=== PATIENT | female | born 1945 | race Caucasian/White ===

== ENCOUNTER 2017-10-27 10:54 | Outpatient (CLI) | payer MEDICARE ==
[2017-10-27] MEDS ORDERED: ISOVUE-370 76%-LOCM 1 ML ONE (12:04)
--- NOTE | 2017-10-27 12:55 | CT ---
CT ABDOMEN AND PELVIS WITH IV CONTRAST: Multiple axial tomograms were obtained through the abdomen and pelvis with IV enhancement. INDICATION: Right lower quadrant pain. COMPARISON: Comparison is made to CT abdomen and pelvis of 02/10/17. FINDINGS: The lung bases are clear. The liver, spleen, and pancreas are unremarkable. Adrenal glands and kidneys appear unremarkable and unchanged. There continues to be a small nonobstr ucting calculi in the upper collecting structures of both kidneys, unchanged from prior exam. Small cyst posterior right renal cortex is stable. No hydronephrosis. No evidence of ureteral calculus or obstruction. The urinary bladder is mildly distended and appears unremarkable. Small bowel loops appear normal. Appendix is normal. Diverticulosis of the left colon and sigmoid. No definite CT evidence of diverticulitis. Aorta shows atherosclerotic calcification but remains normal caliber. No adenopathy apparent. Images through the pelvis show evidence of hysterectomy. There continues to be a cystic mass in the left pelvis measuring 2.4 cm. Evidence of internal septations. This mass density is unchanged from the prior study. IMPRESSION: 1. Nonobstructing calculi in the upper collecting structures of both kidneys appears stable. 2. Bilateral renal cystic lesions are stable. 3. Septated cystic mass in the left pelvis unchanged. 4. Diverticulosis without CT evidence of diverticulitis. 5. No acute process or significant interval change. POS: [facility]
== END 2017-10-27 10:55 | disposition home or self-care (01) ==
LOC: BICCT 10:54
PROVIDERS: ATTEND Internal Medicine Gastroenterology
DX: R10.30 Lower abdominal pain, unspecified (principal); N20.0 Calculus of kidney; N28.1 Cyst of kidney, acquired; K57.90 Diverticulosis of intestine, part unspecified, without perforation or abscess without bleeding; Z87.42 Personal history of other diseases of the female genital tract
CPT/HCPCS: 74177; 82565

== ENCOUNTER 2018-04-10 12:24 | Outpatient (CLI) | payer MEDICARE ==
--- NOTE | 2018-04-10 14:49 | PET ---
NUCLEAR MEDICINE PET CT BRAIN: DATE: 04-10-18 HISTORY: 73-year-old female with R41.3 memory difficulty. TECHNIQUE: IV injection of 8.2 mCi [id number]. PET scan and noncontrast brain CT performed. PET-CT fusion images reviewed. FINDINGS: Ventricles are normal in size and configuration. No mass effect, midline shift, or extraaxial fluid c ollection on the noncontrast brain CT. 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 Paranasal sinuses are clear. There is no evidence of hypometabolism of the parietal lobes, posterior cingulate gyrus, or precuneus to indicate Alzheimer's disease. There is decreased uptake in the anterior portions of the temporal lobes and the anterior cingulate g yrus, but not necessarily in the frontal lobes. IMPRESSION: 1. No evidence of Alzheimer's disease 2. 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 Recommend clinical corre lation. POS: [email or web address]
== END 2018-04-10 12:25 | disposition home or self-care (01) ==
LOC: PET 12:24
PROVIDERS: ATTEND Psychiatry & Neurology Neurology
DX: R41.3 Other amnesia (principal)
CPT/HCPCS: 78608; A9552

== ENCOUNTER 2018-05-18 15:34 | Outpatient (CLI) | payer MEDICARE ==
--- NOTE | 2018-05-18 16:21 | CT ---
EXAM: CT Stone Protocol PROVIDED CLINICAL HISTORY: Renal calculi. COMPARISON: Studies on 10/27/2017 and 06/14/2016 FINDINGS: Again noted is a nonobstructing inferior pole left renal calculus measuring 6 mm. Previously seen danii culi in the right renal collecting system are now seen within the right renal pelvis largest measuring 7 mm. There is mild prominence of the right renal pelvis with mild inferior pole calyceal d ilatation of uncertain etiology. The calculi are not seen in the region of the right UPJ. A hypodense lesion is seen at the posterior aspect midportion right kidney also seen on the prior con trasted study and demonstrating characteristics compatible with a cyst on prior exam. Minimal dependent bibasilar atelectasis is present. Vascular calcifications are again seen in the abdominal aorta and involving the iliac arteries. The liver demonstrates diminished attenuation relative to the spleen suggesting fatty infiltration. Spleen, pancreas, bilateral adrenal glands, and urinary bladder demonstrate a normal CT appearance. There is evidence of prior hysterectomy. A 2.6 cm hypodense cystic lesion is seen in the left lower hemipelvis which was also seen on prior ex ams; this cystic adnexal lesion is larger than expected for a patient of this age. Pelvic ultrasound is suggested for further evaluation if this has not been performed. Colonic diverticulosis is again present. The appendix is visualized and normal in caliber. Left convex scoliosis thoracolumbar spine is present. IMPRESSION: 1. Nonobstructing bilateral renal calculi. However, the previously seen calculi in the right renal co llecting system have now migrated into the right renal pelvis which is mildly dilated likely due to a dilated extrarenal pelvis. However, these calculi do not appear to result in obstruction, but there is mild dilatation of the inferior pole right renal calyces of uncertain etiology. 2. Fatty infiltration liver. 3. Colonic diverticulosis. 4. Stable left pelvic cystic lesion. This could be ovarian in origin, but this would be larger than e xpected for a patient of this age. Pelvic ultrasound is suggested for further evaluation.
== END 2018-05-18 15:35 | disposition home or self-care (01) ==
LOC: BICCT 15:34
PROVIDERS: ATTEND Obstetrics & Gynecology
DX: N20.0 Calculus of kidney (principal); K76.0 Fatty (change of) liver, not elsewhere classified; K57.30 Diverticulosis of large intestine without perforation or abscess without bleeding; N83.8 Other noninflammatory disorders of ovary, fallopian tube and broad ligament
CPT/HCPCS: 74176

== ENCOUNTER 2018-06-28 16:37 | Outpatient (CLI) | payer MEDICARE ==
--- NOTE | 2018-06-28 16:54 | RAD ---
KUB: HISTORY: Renal calculi. COMPARISON: 02/16/2018 FINDINGS: There are calculi in the projection of the kidneys bilaterally. The 7 mm calculus in the right kidney and a tiny calculi in the left kidney are stable. The other calculi in the right kidney measuring up to 5 mm are not definitely seen on the previous exam and could've been obscured by overlying bowel contents. IMPRESSION: Bilateral renal calculi.
== END 2018-06-28 16:38 | disposition home or self-care (01) ==
LOC: RAD 16:37
PROVIDERS: ATTEND Urology
DX: N20.0 Calculus of kidney (principal)
CPT/HCPCS: 74018

== ENCOUNTER 2018-07-04 08:25 | Day surgery (SDC) | payer MEDICARE ==
[2018-07-03 15:22] VITALS: BMI 26.5
[2018-07-04 10:13] LABS: #Eosinphils 0.2 thou/uL (0.0-0.7); #Lymphocytes 1.6 thou/uL (1.20-3.40); #Monocytes 0.5 thou/uL (0.11-0.59); #Neutrophils 5.2 thou/uL (1.40-6.50); %Basophils 0.5 % (0.0-1.0); %Eosinophils 2.9 % (0.0-10.0); %Lymphocytes 20.9 % (21.0-51.0); %Neutrophils 68.7 % (42.0-75.0); Hemoglobin 12.7 g/dL (12.0-16.0); Mean Corpuscular HGB CONC 32.6 g/dL (32.0-36.0); Mean Corpuscular Hemoglobin 29.3 pg (27.0-31.0); Mean Corpuscular Volume 89.9 fL (78.0-98.0); Mean Platelet Volume 6.6 fL (7.4-10.4); Platelet Count 271 thou/uL (130-400); Red Blood Cell (RBC) Count 4.33 mill/uL (4.20-5.40); White Blood Cell (WBC) Count 7.6 thou/uL (4.8-10.8)
[2018-07-04 10:18] LABS: Platelet Count 271 thou/uL (130-400)
[2018-07-04 10:20] LABS: PTT 32.1 SEC (22.9-36.1); Prothrombin Time 13.7 SEC (12.0-14.7)
[2018-07-04 10:28] LABS: EPI 146 SEC (67-199)
[2018-07-04] MEDS ORDERED: Fentanyl 100 MCG/2 ML VIAL ONE (10:49)
--- NOTE | 2018-07-04 12:59 | OP ---
DATE OF PROCEDURE: 07/04/2018 PREOPERATIVE DIAGNOSIS: Right renal stone. POSTOPERATIVE DIAGNOSIS: Right renal stone. PROCEDURE PERFORMED: Right extracorporeal shock wave lithotripsy. ANESTHETIC: General. ESTIMATED BLOOD LOSS: Not recorded. FINDINGS: There was a 7 mm stone in the right renal pelvis. She probably has a couple stones there based on her CAT scan. This area was treated with 2500 shocks at maximum level kV 4 with the last 500 shocks at level 5. There were no stent was placed. There was good fragmentation. DESCRIPTION OF PROCEDURE: Obtained written and verbal consent from the patient and after documenting normal preoperative blood work, being sure we could see her stone in preoperative x-ray, she was taken to the operating suite. She was placed in a supine position on the treatment table. PlexiPulses were placed on her lower extremities and turned on. She was given a general anesthetic and oral obturator intubation. She was coupled to the lithotripsy unit. The stone was placed in treatment focal point. Shockwave therapy was commenced starting at a low kV and a slow rate. After couple 100 shocks, a 5 minute pause was given. We restarted the ESWL and kept at a rate of 60. We increased slowly the kV up to 4 and then a 2000 shocks increased up to 5. Actually for the last 100 shocks decreased back to 4. It appeared to fragment the stone into pieces very nicely. The stent was not felt to be necessary. At the end of procedure, she was awakened and extubated and taken by stretcher to the recovery room. Job ID: [id number]
[2018-07-04] MEDS ORDERED: Glycopyrrolate 0.2 MG/ML 5 ML SYRINGE ONE (13:05)
[2018-07-04] MEDS ORDERED: Hydrocortisone Sod Succ/PF 100 mg/2 ml Vial ONE (13:05)
[2018-07-04] MEDS ORDERED: PROPOFOL 200 MG/20 ML VIAL ONE (13:05)
[2018-07-04] MEDS ORDERED: Lidocaine 1% PF 5 ML VIAL ONE (13:05)
[2018-07-04] MEDS ORDERED: Ondansetron PF 4 MG/2 ML Vial ONE (13:05)
== END 2018-07-04 13:55 | disposition home or self-care (01) ==
LOC: SDC 08:25
PROVIDERS: ATTEND Urology
PROC: 0TF3XZZ Fragmentation in Right Kidney Pelvis, External Approach (ICD-10-PCS; principal; 2018-07-04)
DX: N20.0 Calculus of kidney (principal); I10 Essential (primary) hypertension; E11.9 Type 2 diabetes mellitus without complications; K21.9 Gastro-esophageal reflux disease without esophagitis; Z79.52 Long term (current) use of systemic steroids; Z79.84 Long term (current) use of oral hypoglycemic drugs; Z79.899 Other long term (current) drug therapy; Z88.0 Allergy status to penicillin; Z88.8 Allergy status to other drugs, medicaments and biological substances
CPT/HCPCS: 36415; 85025; 85576; 85610; 85730; J1720; J2001; J2405; J2704; J3010

== ENCOUNTER 2018-07-15 22:46 | Emergency (ER) | payer MEDICARE ==
[2018-07-15] MEDS ORDERED: Ondansetron PF 4 MG/2 ML Vial ONE (23:06)
[2018-07-15] MEDS ORDERED: Morphine 4 MG/ML VIAL ONE (23:06)
[2018-07-15 23:40] LABS: #Basophils 0.1 thou/uL (0.0-0.2); #Eosinphils 0.2 thou/uL (0.0-0.7); #Lymphocytes 2.4 thou/uL (1.20-3.40); #Monocytes 0.8 thou/uL (0.11-0.59); #Neutrophils 6.4 thou/uL (1.40-6.50); %Basophils 0.9 % (0.0-1.0); %Eosinophils 2.5 % (0.0-10.0); %Monocytes 8.1 % (0.0-10.0); %Neutrophils 64.6 % (42.0-75.0); Hemoglobin 11.7 g/dL (12.0-16.0); Mean Corpuscular HGB CONC 33.2 g/dL (32.0-36.0); Mean Corpuscular Hemoglobin 29.7 pg (27.0-31.0); Mean Corpuscular Volume 89.5 fL (78.0-98.0); Mean Platelet Volume 6.8 fL (7.4-10.4); Platelet Count 283 thou/uL (130-400); RBC Distribution Width 12.6 % (11.5-14.5); Red Blood Cell (RBC) Count 3.94 mill/uL (4.20-5.40); White Blood Cell (WBC) Count 9.9 thou/uL (4.8-10.8)
[2018-07-16] MEDS ORDERED: Morphine 4 MG/ML VIAL ONE (00:03)
[2018-07-16 00:09] LABS: Albumin 4.1 g/dL (3.4-4.8)
[2018-07-16 00:10] LABS: Chloride 110 mmol/L (98-107); Potassium 3.4 mmol/L (3.5-5.1); Sodium 142 mmol/L (136-145)
[2018-07-16 00:11] LABS: Glucose 139 mg/dL (83-110)
[2018-07-16 00:12] LABS: Globulin 2.2 g/dL (2.4-3.5); Protein, Total 6.3 g/dL (6.0-8.3)
[2018-07-16 00:13] LABS: Bilirubin, Total 0.2 mg/dL (0.2-1.2); Carbon Dioxide 18 mmol/L (23-31)
[2018-07-16 00:14] LABS: Alkaline Phosphatase 65 U/L (40-150)
[2018-07-16 00:15] LABS: BUN (Urea Nitrogen) 16 mg/dL (9.8-20.1); Calc. Creatinine Clearance 0 mL/min (70-130); Estimated GFR-MDRD 64
[2018-07-16 00:16] LABS: AST (SGOT) 16 U/L (5-34)
[2018-07-16 00:17] LABS: ALT (SGPT) 17 U/L (8-55); Lipase 147 U/L (8-78)
--- NOTE | 2018-07-16 00:20 | RAD ---
RADIOGRAPH CHEST 1 VIEW: DATE: 07/16/2018 HISTORY: Chest pain FINDINGS: There are no airspace densities, pulmonary edema, pneumothorax, or cardiomegaly. The lateral costophr enic angles are sharp. IMPRESSION: No acute cardiopulmonary findings.
--- NOTE | 2018-07-16 00:29 | ULT ---
ULTRASOUND ABDOMEN LIMITED: (RIGHT UPPER QUADRANT) DATE: 07/15/2018 Time: 11:58 PM HISTORY: Epigastric pain FINDINGS: Gallbladder: Normal wall thickness. No evidence of pericholecystic fluid, gallstones, or sludge. Liver: Diffusely increased echogenicity, consistent with fatty liver. Common duct caliber:4 mm. Right kidney: No hydronephrosis. 2 x 1.5 cm upper pole parapelvic cyst. Pancreas: Nonspecific sonographic appearance. IMPRESSION: 1) Hepatic steatosis. 2.) Right renal cyst 3) otherwise negative.
[2018-07-16 00:42] LABS: Anion Gap 17 mmol/L (10-20)
[2018-07-16 00:45] LABS: Bilirubin Small (Negative); Blood, Urine Large (Negative); Clarity TURBID (Clear); Glucose, Urine (Dipstick) Negative (Negative); Leukocyte Moderate (Negative); Nitrite Negative (Negative); Protein, Urine (Dipstick) 100 mg/dL (Neg-Trace); Specific Gravity, Urine 1.018 (1.002-1.036)
[2018-07-16 00:47] LABS: WBC/HPF 21-50 HPF (0-3)
[2018-07-16 00:49] LABS: Pathc Cast-AUWi Flag 2.58 (0-2.49); Yeast-AUWi Flag 93.9 (0-25.0)
[2018-07-16] MEDS ORDERED: Fentanyl 100 MCG/2 ML VIAL ONE (00:49)
[2018-07-16 00:57] LABS: RBC/HPF GREATER THAN 50-TNTC HPF (0-3)
[2018-07-16 00:58] LABS: Bacteria/HPF Rare-Few HPF (None Seen); Yeast-All Forms None Seen HPF (None Seen)
[2018-07-16] MEDS ORDERED: niCARdipine 20MG In NaCl 20 MG/200 ML BAG ONE (01:04)
[2018-07-16] MEDS ORDERED: Labetalol HCl 100 MG/20 ML VIAL ONE (01:04)
--- NOTE | 2018-07-16 07:41 | CT ---
PRELIMINARY REPORT/[facility]/EMERGENCY AFTER HOURS PROCEDURE: EXAM: CT Angiography Chest With Contrast EXAM DATE/TIME: 07/16/2018 12:33 AM CLINICAL HISTORY: 73 years old, female; Chest pain; Abdominal pain; Acute; Patient HX: 73 y/o F presents to ED via EMS transport for sudden onset of abd pain at approx 2200 tonight. PT states pain began as she was getting out of the bathtub, initially localized to epigastrium then migrated to her chest. PT also no sophy radiation of pain to upper back. Associated with diaphoresis. Denies nausea, dyspnea, dizziness. Per EMS, vss en route. Pain somewhat improved following sl ng. TECHNIQUE: Imaging protocol: Axial computed tomographic angiography images of the chest with intravenous contrast using CT angiography protocol. 3D rendering: MIP reconstructed images were created and reviewed. COMPARISON: No relevant prior studies available. FINDINGS: Pulmonary arteries: Normal. No pulmonary emboli. Aorta: Unremarkable. No aortic aneurysm. No aortic dissection. Other arteries: There is periaortic density measuring about 80 Hounsfield units just distal to the le ft subclavian artery and extends inferiorly and terminates about the level of the celiac artery. No inti mal flap visualized. Lungs: Bibasal atelectasis. Pleural space: Unremarkable. No pneumothorax. No pleural effusion. Heart: Unremarkable. No cardiomegaly. No pericardial effusion. Mediastinum: Mild to moderate hiatal hernia. Lymph nodes: Unremarkable. No enlarged lymph nodes. Bones/joints: Unremarkable. No acute fracture. Soft tissues: Unremarkable. IMPRESSION: 1. 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 2. No pulmonary embolism. 3. Mild to moderate hiatal hernia. EXAM: CT Angiography Abdomen With Contrast EXAM DATE/TIME: 07/16/2018 12:33 AM CLINICAL HISTORY: 73 years old, female; Chest pain; Abdominal pain; Acute; Patient HX: 73 y/o F presents to ED via EMS transport for sudden onset of abd pain at approx 2200 tonight. PT states pain began as she was getting out of the bathtub, initially localized to epigastrium then migrated to her chest. PT also no sophy radiation of pain to upper back. Associated with diaphoresis. Denies nausea, dyspnea, dizziness. Per EMS, vss en route. Pain somewhat improved following sl ng. TECHNIQUE: Imaging protocol: Axial computed tomographic angiography images of the abdomen with intravenous contrast material. 3D rendering: MIP reconstructed images were created and reviewed. COMPARISON: No relevant prior studies available. FINDINGS: Lungs: Unremarkable. No consolidation. VASCULATURE: Aorta: There is ectasia of the infrarenal aorta measuring 2.7 cm. Moderate atheromatous calcifications of the abdominal aorta and its celiac ostium. There is short segment of narrowing of t he celiac ostium. Celiac trunk and mesenteric arteries: See Aorta Finding. Renal arteries: No occlusion or significant stenosis. ABDOMEN: Liver: Normal. No mass. Gallbladder and bile ducts: Normal. No calcified stones. No ductal dilation. Pancreas: Normal. No ductal dilation. Spleen: Normal. No splenomegaly. Adrenals: Normal. No mass. Kidneys and ureters: 2.4 cm right renal cyst. There is a 0.5 cm nonobstructing right renal stone. There is a 0.4 cm stone within the left renal pelvis with focal dilatation. No hydronephrosis. Stomach and bowel: Unremarkable. No obstruction. No mucosal thickening. Intraperitoneal space: Unremarkable. No free air. No significant fluid collection. Bones/joints: Scoliosis of the thoracolumbar spine. No acute fracture. No dislocation. Soft tissues: Unremarkable. Lymph nodes: Unremarkable. No enlarged lymph nodes. IMPRESSION: 1. 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 No intimal flap. Please see liquid fertilizer servicer CTA chest. 2. 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 3. 0.5 cm Nonobstructing right renal stone. 4. 0.4 cm stone within the left renal pelvis without definite hydronephrosis. THIS REPORT CONTAINS FINDINGS THAT MAY BE CRITICAL TO PATIENT CARE. The findings were verbally communicated via telephone conference with KENZIE Frost at 12:58 AM CDT on 07/16/2018. The findings were acknowledged and understood. Thank you for allowing us to participate in the care of your patient. Dictated and Authenticated by: Rula Kwan DO 07/16/2018 1:16 AM Central Time ([place] & [place]) FINAL REPORT CT Aortic Dissection Protocol History: Chest pain. Back pain. Comparison: Chest radiograph prior day Findings/Impression: CT angiogram of the chest and abdomen performed after the intravenous administr ation of contrast. 3-D rendering provided. The findings and impression are concordant with the preliminary report. Aortic intramural hematoma of the distal transverse aorta extending throughout th e ascending aorta to the level of celiac trunk which does extend to the base of the left subclavian artery. Cardiovascular surgical consultation advised. Transcribed Date/Time: 07/16/2018 7:53 AM
[2018-07-16] MEDS ORDERED: ISOVUE-370 76%-LOCM 1 ML ONE (09:50)
== END 2018-07-16 02:15 | disposition short-term general hospital (02) ==
LOC: ERS 22:46
DX: M79.81 Nontraumatic hematoma of soft tissue (principal); I10 Essential (primary) hypertension; K21.9 Gastro-esophageal reflux disease without esophagitis; F32.9 Major depressive disorder, single episode, unspecified; Z79.84 Long term (current) use of oral hypoglycemic drugs; Z79.899 Other long term (current) drug therapy
CPT/HCPCS: 36415; 71045; 71275; 76705; 80053; 81003; 81015; 83690; 84484; 85025; 86850; 86900; 86901; 93005; 96361; 96365; 96375; 96376; J2270; J2405; J3010; Q9966

== ENCOUNTER 2018-10-05 11:40 | Emergency (ER) | payer MEDICARE ==
[2018-10-05 12:16] LABS: #Eosinphils 0.3 thou/uL (0.0-0.7); #Lymphocytes 1.3 thou/uL (1.20-3.40); #Monocytes 0.7 thou/uL (0.11-0.59); #Neutrophils 3.7 thou/uL (1.40-6.50); %Basophils 0.3 % (0.0-1.0); %Eosinophils 5.4 % (0.0-10.0); %Lymphocytes 21.4 % (21.0-51.0); %Monocytes 11.6 % (0.0-10.0); %Neutrophils 61.3 % (42.0-75.0); Hemoglobin 11.7 g/dL (12.0-16.0); Mean Corpuscular HGB CONC 32.7 g/dL (32.0-36.0); Mean Corpuscular Hemoglobin 29.3 pg (27.0-31.0); Mean Corpuscular Volume 89.6 fL (78.0-98.0); Mean Platelet Volume 6.6 fL (7.4-10.4); Platelet Count 332 thou/uL (130-400); RBC Distribution Width 14.9 % (11.5-14.5); Red Blood Cell (RBC) Count 4.01 mill/uL (4.20-5.40)
[2018-10-05 12:20] LABS: INR-International Normal Ratio 1.1; PTT 30.4 SEC (22.9-36.1)
[2018-10-05 12:37] LABS: ALT (SGPT) 12 U/L (8-55); AST (SGOT) 13 U/L (5-34); Albumin 4.5 g/dL (3.4-4.8); Alkaline Phosphatase 65 U/L (40-150); Anion Gap 16 mmol/L (10-20); BUN (Urea Nitrogen) 14 mg/dL (9.8-20.1); Bilirubin, Total 0.3 mg/dL (0.2-1.2); Calc. Creatinine Clearance 0 mL/min (70-130); Calcium 9.7 mg/dL (7.8-10.44); Carbon Dioxide 20 mmol/L (23-31); Chloride 111 mmol/L (98-107); Estimated GFR-MDRD 52; Globulin 2.8 g/dL (2.4-3.5); Glucose 131 mg/dL (83-110); Potassium 4.2 mmol/L (3.5-5.1); Protein, Total 7.3 g/dL (6.0-8.3); Sodium 143 mmol/L (136-145)
[2018-10-05] MEDS ORDERED: ISOVUE-370 76%-LOCM 1 ML ONE (12:47)
--- NOTE | 2018-10-05 13:21 | CT ---
Exam: CT angiogram of the abdomen and pelvis with IV contrast: COMPARISON: 2018 HISTORY: Left lower quadrant pain, history of aortic repair, dark diarrhea The lung bases are clear. Aortic endo stent noted in the distal thoracic aorta. Prominent atheroscler otic calcification changes of the aorta and great vessels within the abdomen. Small focal aneurysmal dilatation of the infrarenal abdominal aorta up to 2.4 cm. Nonobstructing bilateral renal calculi. 2.2 cm posterior right renal cyst. Using Nascet Criteria, mild stenotic changes of the origins of the right and left renal arteries. There is also mild to moderate stenosis of the origin o f the celiac artery. No CT evidence for acute appendicitis. Colonic diverticulosis particularly in the sigmoid colon without CT evidence for acute diverticulitis . 2.5 cm left adnexal cyst status post hysterectomy. No abdominal or pelvic abscess, adenopathy, or abnormal fluid collection. IMPRESSION: Atherosclerotic calcification changes of the aorta and great vessels within the abdomen and pelvis. 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 Nonobstructing bilateral renal calculi. Colonic diverticulosis without acute diverticulitis. Focal atherosclerotic ectatic changes of the infrarenal abdominal aorta up to 2.4 cm.
== END 2018-10-05 15:00 | disposition home or self-care (01) ==
LOC: ERS 11:40
DX: K52.9 Noninfective gastroenteritis and colitis, unspecified (principal); I71.4 Abdominal aortic aneurysm, without rupture; F32.9 Major depressive disorder, single episode, unspecified; Z79.899 Other long term (current) drug therapy
CPT/HCPCS: 36415; 74174; 80053; 85025; 85610; 85730; 86850; 86900; 86901; Q9966

== ENCOUNTER 2018-11-02 09:48 | Outpatient (CLI) | payer MEDICARE ==
--- NOTE | 2018-11-02 10:41 | MRI ---
MRI Lumbar Spine Noncontrast: HISTORY: Lumbago with sciatica, right side. COMPARISON: None FINDINGS: There is an increased T2-weighted signal intensity lesion seen in the midportion right kidney which d emonstrates characteristics most compatible with a cyst. This is also seen on prior CT abdomen on 10/05/2018 and 10/27/2017. There are additional tiny subcentimeter increased T2-weighted signal intensi ty foci in each kidney also statistically likely representing cysts, a few of which were also seen on prior study in 2018. Conus medullaris is normal in morphology and terminates at the L2 level. There is mild left convex cu rvature of the thoracolumbar spine. L1-2: There is no significant narrowing of the central spinal canal or neural foramina. L2-3: There is a mild disc osteophyte complex present. Central spinal canal and neural foramina are p atent. L3-4: There is a mild broad-based disc osteophyte complex and facet hypertrophic changes. There is mi nimal narrowing of the central spinal canal. Neural foramina are patent. L4-5: A mild broad-based disc osteophyte complex is present with moderate facet hypertrophic changes present. There is minimal narrowing of the central spinal canal. The right neural foramen is patent, but there is mild left-sided neural foraminal narrowing. Mild endplate degenerative changes a re seen. L5-S1: A minimal disc bulge is present. Facet hypertrophic changes are identified at this level. The central spinal canal and neural foramina are patent. IMPRESSION: Minimal scattered degenerative changes of the lumbar spine. There is no significant central canal or neural foraminal narrowing at any level.
== END 2018-11-02 09:49 | disposition home or self-care (01) ==
LOC: TBSIIMAG 09:48
PROVIDERS: ATTEND Nurse Practitioner Acute Care
DX: M54.41 Lumbago with sciatica, right side (principal); M47.816 Spondylosis without myelopathy or radiculopathy, lumbar region
CPT/HCPCS: 72148

== ENCOUNTER 2019-02-28 09:42 | Observation (INO) | payer MEDICARE ==
[2019-02-28 10:25] LABS: #Basophils 0.1 thou/uL (0.0-0.2); #Eosinphils 0.9 thou/uL (0.0-0.7); #Lymphocytes 1.2 thou/uL (1.20-3.40); #Monocytes 1.3 thou/uL (0.11-0.59); %Basophils 0.5 % (0.0-1.0); %Eosinophils 8.4 % (0.0-10.0); %Lymphocytes 11.4 % (21.0-51.0); %Monocytes 12.2 % (0.0-10.0); %Neutrophils 67.5 % (42.0-75.0); Hemoglobin 10.9 g/dL (12.0-16.0); Mean Corpuscular HGB CONC 31.5 g/dL (32.0-36.0); Mean Corpuscular Hemoglobin 28.3 pg (27.0-31.0); Mean Corpuscular Volume 89.9 fL (78.0-98.0); Mean Platelet Volume 6.7 fL (7.4-10.4); Platelet Count 284 thou/uL (130-400); RBC Distribution Width 15.2 % (11.5-14.5); Red Blood Cell (RBC) Count 3.85 mill/uL (4.20-5.40); White Blood Cell (WBC) Count 10.3 thou/uL (4.8-10.8)
[2019-02-28 10:46] LABS: ALT (SGPT) Less than 7 U/L (8-55); AST (SGOT) 13 U/L (5-34); Albumin 3.6 g/dL (3.4-4.8); Alkaline Phosphatase 60 U/L (40-110); Anion Gap 12 mmol/L (10-20); BUN (Urea Nitrogen) 19 mg/dL (9.8-20.1); Bilirubin, Total 0.4 mg/dL (0.2-1.2); Calc. Creatinine Clearance 0 mL/min (70-130); Calcium 8.1 mg/dL (7.8-10.44); Carbon Dioxide 21 mmol/L (23-31); Chloride 108 mmol/L (98-107); Estimated GFR-MDRD 41; Globulin 2.3 g/dL (2.4-3.5); Glucose 99 mg/dL (83-110); Protein, Total 5.9 g/dL (6.0-8.3); Sodium 137 mmol/L (136-145)
--- NOTE | 2019-02-28 11:37 | CT ---
CTA OF THE CHEST AND ABDOMEN UTILIZING AN AORTIC DISSECTION PROTOCOL AND 3-D REFORMATTED IMAGING INDICATION: Fall with back pain COMPARISON: Prior CTA aortic dissection protocol dated July 16, 2018 FINDINGS: Aorta: Since the prior examination there is been interval placement of a long endograft stent extendi ng from the thoracic aortic arch to the level of the suprarenal abdominal aorta, ending just proximal to the celiac artery origin. The ascending aorta and proximal aortic arch appear within norm al limits. There is stable moderate narrowing involving the origin and proximal aspect of the celiac artery. The SMA is patent. There is mild atherosclerotic calcification involving the proximal renal arteries bilaterally without hemodynamically significant stenosis. There is mild ectasia of the infrarenal abdominal aorta measuring 2.5 cm. The ALISON is patent. Both common iliac arteries are pa tent. Central pulmonary artery: No central pulmonary embolus demonstrated. Additional thorax findings: There is nonspecific bibasilar subsegmental atelectasis. No pneumothorax or contusion is evident. No enlarged lymph nodes are present. There are coronary artery calcifications. Additional abdominal findings: There is a small hiatal hernia. There is a 1.8 cm arterially enhancing lesion within segment 6 of the right hepatic lobe on image 119 series 2. An additional is seen within segment 7 on image 101 of series 2 measuring 7 mm. 2 additional subcentimeter enhancing lesion s are seen on image 90 of series 2 within segment 5 of the right hepatic lobe. There is a 5 mm enhancing lesion adjacent to the gallbladder fossa on image 108 of series 2. These lesions may have b een present on the prior examination but are less accentuated and left prominent in size and on the current study. Lesions appear slightly more pronounced than on the comparison CT examination dated 2018. There has been interval development of mild bilateral hydronephrosis. There is left-sided hydroureter that is incompletely evaluated. There is a stable 6 mm stone within the right mid kidney. There is stable right renal cyst. Osseous structures: There is a new, likely acute mild superior endplate compression fracture of L1. T his is new from the comparison MR dated November 02, 2018. No additional acute fractures evident. IMPRESSION: 1. New mild superior endplate compression fracture of L1. 2. Interval placement of an endograft stent in the descending thoracic aorta and proximal suprarenal abdominal aorta. 3. New bilateral hydronephrosis of undetermined etiology. Would recommend consideration for a follow- up CT of the pelvis to evaluate for distal obstructing process at the level bladder or distal ureters. There is stable right nephrolithiasis and right renal cysts. 4. 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 5. 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
[2019-02-28] MEDS ORDERED: Morphine 4 MG/ML VIAL ONE (11:59)
[2019-02-28] MEDS ORDERED: Cyclobenzaprine 10 MG TAB ONE (13:42)
[2019-02-28 13:53] LABS: Bacteria/HPF None Seen HPF (None Seen); Bilirubin Negative (Negative); Blood, Urine Trace (Negative); Clarity Clear (Clear); Glucose, Urine (Dipstick) Normal (Negative); Leukocyte Negative Leu/uL (Negative); Nitrite Negative (Negative); Protein, Urine (Dipstick) Negative (Neg-Trace); RBC/HPF 0-3 HPF (0-3); Squamous Epithelial 0-3 HPF (0-3); Urobilinogen Normal mg/dL (Less than 2)
[2019-02-28] MEDS ORDERED: Acetaminophen 500 MG TAB ONE (14:19)
[2019-02-28] MEDS ORDERED: HYDROcodone/Acetaminophen 5/325 mg Tablet ONE (14:19)
[2019-02-28] MEDS ORDERED: Iopamidol-370 76% 500 ML 1 ML ONE (14:29)
[2019-02-28] MEDS ORDERED: Ondansetron ODT 4 MG TAB PO PRN (16:47)
[2019-02-28] MEDS ORDERED: hydrALAZINE 20 MG/ML VIAL SLOW IVP PRN (16:47)
[2019-02-28] MEDS ORDERED: Dextrose 50% Abboject 50 ML SYRINGE SLOW IVP PRN (16:47)
[2019-02-28] MEDS ORDERED: Dextrose 5% in Water 1,000 ML IV PRN (16:47)
[2019-02-28] MEDS ORDERED: Ondansetron PF 4 MG/2 ML Vial IVP PRN (16:47)
[2019-02-28] MEDS ORDERED: traMADol HCl 50 MG TAB PO PRN (16:56)
--- NOTE | 2019-02-28 19:31 | HP ---
CONSULTING PHYSICIANS: 1. Emi Mclaughlin NP. 2. Jaylin Barajas MD. HISTORY OF PRESENT ILLNESS: Ms. Mann is a 74-year-old female, who presents to the ED after the incident of fall at home. This morning, the patient reports she went to the bathroom, felt dizzy and dropped on her back. She did not hit her head or other area. After the fall, the patient reports pain in the lower back with no neurology deficits. The patient is still awake and alert. Upon arrival, the patient was aware and alert. GCS 15. Vitals with bradycardia, heart rate is 50 to 60, blood pressure report per EMS is 84/41, and the patient did receive 1 L of fluid. REVIEW OF SYSTEMS: Noncontributory except per HPI. PAST MEDICAL HISTORY: The patient has a past medical history of hypertension. PAST SURGICAL HISTORY: Include aortic dissection repair last year with 2 stents, hysterectomy, tonsillectomy, ovarian cyst and pituitary tumor. SOCIAL HISTORY: The patient denies alcohol use or drug use. Denies smoking history. The patient lives at home and ambulates well with no assistance with a walker or cane. ALLERGIES: NO KNOWN ALLERGY. CURRENT MEDICATIONS: 1. Nifedipine 60 mg b.i.d. 2. Bisoprolol 5 mg two tablets b.i.d. 3. Sertraline 25 mg daily. 4. Gabapentin 100 one tablet every 8 hours as needed. 5. Tramadol 50 mg every 6 hours as needed. 6. Spironolactone 50 mg one tab daily. 7. Irbesartan 300 one tablet daily. 8. Pantoprazole 40 mg one tablet daily. 9. Tylenol and naproxen as needed. PHYSICAL EXAMINATION: GENERAL: The patient is lying in bed comfortable with no acute respiratory distress. The patient is alert, awake, and answers question intelligently. GCS is 15. HEENT: Atraumatic. No bruising. No tender to palpation. Pupil 3 mm, equal bilaterally. NECK: Trachea is midline. No tender to palpation. CHEST: Atraumatic. No bruising. No crepitus. No tender to palpation. LUNGS: Clear bilaterally. HEART: Regular rhythm. Bradycardia, heart rate is 55 beats per minute. ABDOMEN: Atraumatic. No bruising. No tender to palpation. No deformity. No distention. Bowel sounds active. PELVIS: Stable. EXTREMITIES: Normal range of motion across. NEUROLOGIC: Sensory is intact x4. Pulses 2+ on 4 extremities. BACK: Tender to palpation at the level of L1. ASSESSMENT: 1. Status post ground-level fall. 2. L1 compression fracture. 3. History of aortic dissection surgery was stents, pituitary tumor removed, and hypertension. PLAN: The patient will be admitted to [place] [id number] Barajas was consulted. Dr. Barajas recommended TLSO brace at all time. The patient will have a low-sodium diet. The patient will be working with PT and OT tomorrow. Anticipate placement in rehabilitation facility either tomorrow or the day after. Job ID: [id number]
[2019-02-28] MEDS: Gabapentin 300 MG CAP PO SCH (20:12)
[2019-02-28] MEDS: Senokot S 8.6-50 MG TAB PO SCH (20:12)
[2019-02-28] MEDS: traMADol HCl 50 MG TAB PO PRN (20:13)
[2019-02-28 20:51] VITALS: BMI 24.6
[2019-02-28] MEDS ORDERED: Bisoprolol Fumarate 5 MG TAB PO SCH (21:00)
[2019-02-28] MEDS ORDERED: Sodium Chloride 0.9% 1,000 ML IV SCH (22:15)
[2019-02-28] MEDS ORDERED: HYDROcodone/Acetaminophen 5/325 mg Tablet PO SCH (22:15)
[2019-02-28] MEDS: Acetaminophen 500 MG TAB PO SCH ×2 (22:50→22:52)
[2019-02-28] MEDS: Bisoprolol Fumarate 5 MG TAB PO SCH (23:01)
--- NOTE | 2019-03-01 00:46 | PRG ---
DATE OF SERVICE: 03/01/2019 SUBJECTIVE: The patient is currently on the surgical floor. She has just been brought up from the emergency department. She has been admitted for an L1 compression fracture after a ground level fall. Originally, she was to go to rehab, but unfortunately there was not a bed available, so we admitted her here until bed availability. She is being admitted for pain control and observe for syncope. PHYSICAL EXAMINATION: VITAL SIGNS: Stable. The patient at the time of my visit has heart rate of 59 and blood pressure of 113/68. We are currently holding her home medicines at this time, though we do realize that her blood pressure is to be held on the lower side as is her heart rate, so we will closely monitor this. GENERAL: The patient is resting comfortably in bed. She is awake, alert, conversant. She states that her pain is moderately controlled. We will make adjustments to this. EXTREMITIES: The patient is wearing her TLSO brace at this time and appears to be fitting well. It is not restricting her respirations. NEUROLOGICAL: She is neurologically intact in all 4 extremities. ASSESSMENT: 1. Status post ground level fall. 2. L1 compression fracture, treated with a TLSO brace. 3. History of aortic dissection, repaired with stent. 4. History of pituitary tumor removal. 5. Hypertension. PLAN: Plan will be to continue supportive care, pain control. Begin physical and occupational therapy in the morning. Close monitoring of her vital signs. Job ID: [id number]
[2019-03-01] MEDS: Acetaminophen 500 MG TAB PO SCH ×3 (05:35→17:20)
[2019-03-01 05:41] LABS: Anion Gap 10 mmol/L (10-20); BUN (Urea Nitrogen) 15 mg/dL (9.8-20.1); Calc. Creatinine Clearance 44 mL/min (70-130); Calcium 8.4 mg/dL (7.8-10.44); Carbon Dioxide 23 mmol/L (23-31); Chloride 111 mmol/L (98-107); Estimated GFR-MDRD 45; Glucose 91 mg/dL (83-110); Sodium 140 mmol/L (136-145)
[2019-03-01] MEDS ORDERED: Levothyroxine Sodium 100 MCG TAB PO SCH (06:00)
[2019-03-01] MEDS ORDERED: Bisoprolol Fumarate 5 MG TAB PO SCH (09:00)
[2019-03-01] MEDS ORDERED: NIFEdipine XL 60 MG TAB PO SCH (09:00)
[2019-03-01] MEDS ORDERED: Losartan 25 MG TAB PO SCH (09:00)
[2019-03-01] MEDS ORDERED: Polyethylene Glycol 3350 17 GM Packet PO SCH ×2 (09:00→15:45)
[2019-03-01] MEDS: Gabapentin 300 MG CAP PO SCH (10:22)
[2019-03-01] MEDS: Senokot S 8.6-50 MG TAB PO SCH (10:22)
[2019-03-01] MEDS: Bisoprolol Fumarate 5 MG TAB PO SCH (10:24)
[2019-03-01] MEDS ORDERED: Iopamidol-370 76% 500 ML 1 ML ONE (10:35)
--- NOTE | 2019-03-01 12:36 | CT ---
CT Abdomen Pelvis W Con: 03/01/2019 9:16 AM CLINICAL INFORMATION: Hydronephrosis COMPARISON: None. TECHNIQUE: Multiple contiguous axial images were obtained and a CT of the abdomen and pelvis with IV contrast. Oral contrast was administered. Coronal and sagittal reformats were performed. FINDINGS: Lower Chest: Bilateral dependent atelectasis Abdomen: Liver: within normal limits. Bile Ducts: Normal caliber. Gallbladder: No calcified gallstones. Normal caliber wall. Pancreas: within normal limits. Spleen: within normal limits. Adrenals: within normal limits. Kidneys: 2.5 cm right renal cyst. Minimal right hydronephrosis. Mild to moderate left hydronephrosis. No delay in either nephrogram. Pelvis: Reproductive Organs: Status post hysterectomy. There is a stable 2.4 cm hypodensity in the left pelvi s which may represent either a bladder diverticulum or a follicle/cyst in the left ovary. Ureters: 6 mm right proximal ureteral calcification with mild enlargement of the right renal pelvis. 4 mm left ureterovesical junction calcification with mild left hydroureter Bladder: within normal limits. Peritoneum: No ascites or free air, no fluid collection. Bowel: Normal caliber. Normal appendix. Diverticula in the colon. Mesentery and Retroperitoneum: No enlarged mesenteric or retroperitoneal lymph nodes. Vessels: Atherosclerotic calcifications. There is a stent in the thoracic aorta. Abdominal Wall: within normal limits. Bones: Within normal limits IMPRESSION: 1. Left ureterovesical junction calculus lesion with mild to moderate left hydronephrosis 2. Proximal right ureteral calcification with minimal hydronephrosis. 3. Diverticulosis 4. Right renal cyst
[2019-03-01] MEDS: traMADol HCl 50 MG TAB PO PRN (13:24)
[2019-03-01 15:29] VITALS: BP 146/70; TEMP 98.1
[2019-03-01] MEDS ORDERED: Morphine 2 MG/ML SYRINGE SLOW IVP SCH (16:45)
[2019-03-01] MEDS ORDERED: Bisacodyl 10 MG SUPP PR SCH (16:45)
[2019-03-02] MEDS ORDERED: Polyethylene Glycol 3350 17 GM Packet PO SCH (09:00)
== END 2019-03-01 18:50 ==
LOC: ERS 09:42 → SURG B 19:57
PROVIDERS: ADMIT Surgery; ATTEND Surgery
DX: S32.010A Wedge compression fracture of first lumbar vertebra, initial encounter for closed fracture (principal); I10 Essential (primary) hypertension; K21.9 Gastro-esophageal reflux disease without esophagitis; K57.30 Diverticulosis of large intestine without perforation or abscess without bleeding; N13.2 Hydronephrosis with renal and ureteral calculous obstruction; N28.1 Cyst of kidney, acquired; Z79.899 Other long term (current) drug therapy; Z95.820 Peripheral vascular angioplasty status with implants and grafts; Z98.890 Other specified postprocedural states; W18.30XA Fall on same level, unspecified, initial encounter; Y92.002 Bathroom of unspecified non-institutional (private) residence as the place of occurrence of the external cause
CPT/HCPCS: 51701; 71275; 72191; 74175; 74177; 80048; 80053; 82533; 82962; 84484; 85025; 87077; 87086; 87186; 93005; 94760; 96361 ×3; 96374; 96376; 97116; 97139 ×4; 99285; G0378 ×3; 36415; 36416; 81003; 81015; A4353; J2270; Q9967

== ENCOUNTER 2019-03-18 06:52 | Day surgery (SDC) | payer MEDICARE ==
[2019-03-15 11:28] VITALS: BMI 23.6
[2019-03-18] MEDS ORDERED: Levofloxacin 500 mg/D5W 100 ml Premix Bag ONE (07:49)
[2019-03-18 08:04] LABS: #Basophils 0.1 thou/uL (0.0-0.2); #Eosinphils 0.5 thou/uL (0.0-0.7); #Lymphocytes 2.2 thou/uL (1.20-3.40); #Monocytes 0.6 thou/uL (0.11-0.59); #Neutrophils 4.3 thou/uL (1.40-6.50); %Basophils 1.2 % (0.0-1.0); %Eosinophils 6.3 % (0.0-10.0); %Monocytes 7.9 % (0.0-10.0); %Neutrophils 55.6 % (42.0-75.0); Hemoglobin 11.9 g/dL (12.0-16.0); Mean Corpuscular HGB CONC 32.2 g/dL (32.0-36.0); Mean Corpuscular Hemoglobin 28.9 pg (27.0-31.0); Mean Corpuscular Volume 89.7 fL (78.0-98.0); Mean Platelet Volume 6.4 fL (7.4-10.4); Platelet Count 448 thou/uL (130-400); RBC Distribution Width 15.6 % (11.5-14.5); Red Blood Cell (RBC) Count 4.11 mill/uL (4.20-5.40); White Blood Cell (WBC) Count 7.7 thou/uL (4.8-10.8)
[2019-03-18] MEDS ORDERED: Famotidine/PF 20 mg/2ml Vial ONE (08:43)
[2019-03-18] MEDS ORDERED: Fentanyl 100 MCG/2 ML VIAL ONE ×2 (08:43→10:41)
[2019-03-18] MEDS ORDERED: Iothalamate Meglumine 60% 50 ML VIAL FS ONE (08:46)
[2019-03-18] MEDS ORDERED: Phenylephrine HCL 10 MG/ML VIAL ONE (08:53)
--- NOTE | 2019-03-18 10:44 | RAD ---
EXAM: Retrograde IVP HISTORY: Kidney stones COMPARISON: 03/06/2019 FINDINGS/IMPRESSION: Limited intraoperative fluoroscopic views of the retrograde IVP were submitted f or interpretation. The initial images show bilateral double-J ureteral stents. The left ureteral stent is removed and there is no significant left hydronephrosis. Catheters for lithotripsy are event ually placed in the right renal collecting system up to the right kidney. Eventually, a right double-J ureteral stent was placed at the completion of the procedure. Mild right hydronephrosis pers ists. No obvious filling defects are seen.
--- NOTE | 2019-03-18 11:19 | OP ---
DATE OF PROCEDURE: 03/18/2019 PREOPERATIVE DIAGNOSIS: Bilateral ureteral stones. POSTOPERATIVE DIAGNOSES: 1. Left ureteral stone. 2. Right renal stone. PROCEDURES PERFORMED: 1. Cystoscopy. 2. Discontinue left stent with left rigid ureteroscopy, laser lithotripsy, and stone retrieval. 3. Discontinue right stent with right rigid and flexible ureteroscopy with laser lithotripsy and stone retrieval. 4. Stent replacement on the right. ANESTHESIA: General. ESTIMATED BLOOD LOSS: Minimal. DRAINS: A 6 x 24 Polaris double-J stent on the right side with a string attached. FINDINGS: She has probably about a 6 mm left lower third ureteral stone and probably 6 to 8 mm right lower pole renal stone had been in the proximal ureter. Initially when the stent was placed, it is migrated back. DESCRIPTION OF PROCEDURE: After obtaining written and verbal consent from the patient after receiving IV antibiotics, she was taken to the operating suite. She was placed in the supine position on the treatment table. PlexiPulses were placed on her lower extremities and turned on. She was given a general anesthetic and oral intubation. She was gently placed in the dorsal lithotomy position and sterilely prepped and draped. The C-arm head was brought in and positioned over her for fluoroscopic guidance. Stents appeared to be in good position. Cystoscopy was performed with a 22-[place] sheath. This was well lubricated and passed under direct vision through the female urethra into the urinary bladder with aid of a 30-degree lens and video camera and monitor. The bladder was filled in a couple of times and emptied a couple of times and then the distal end of the indwelling double-J stent was grasped. The one on the left side and brought out through the urethral meatus and a guidewire was fed up across this and the stent was removed over the guidewire and discarded. A small caliber graduated rigid ureteroscope was brought in and under direct vision with a video camera and monitor, placed through the female urethra into the bladder and up adjacent to the guidewire up the left ureter. The stone was about 4 cm proximal to the ureteral orifice, it was broken up with the laser, a little bit larger. The fragments were grasped with a Nitinol basket and dropped into the bladder. We went ahead and all the way up to this proximal ureter, found no other abnormality in the ureter. The instrument was removed. Ailyn was placed over the guidewire and used to back-load the guidewire into the 22-[place] sheath. The Pollack was placed up into the area of the left renal pelvis. The guidewire was removed and contrast was injected, filling out this entire collecting system. The Pollack catheter was removed and then we watched this side over the next 10 to 15 minutes and it seemed to drain adequately. A stent was not replaced. The same time as we were waiting for the left side to clear, we went ahead and grasped the indwelling right double-J stent, fed a guidewire up across that, removed the stent over the wire, discarded it, brought in the flexible ureteroscope, went up as far as the UPJ and did not see any ureteral stones. We fed at this point and stiff blue guidewire up through the rigid scope up to the renal pelvis and removed the rigid scope. We then brought in a medium-sized ureteral sheath with obturator, well lubricated, passed over the blue guidewire up to the proximal ureter, removing the obturator wire and then bringing the flexible ureteroscope. We used this to look at the proximal ureter, UPJ, renal pelvis, and the calyceal system. The stone had been in the ureter and fallen back into the lower pole of that system. We used a small caliber holmium laser fiber to break this up in a numerous fragments. A few of the larger fragments were basketed and removed and these we sent off for stone analysis. On reinspection, we found no sizable stones remaining in any of the collecting system, renal pelvis, or proximal ureter. We backed out the sheath under direct vision with a flexible ureteroscope just behind it and there was no other abnormality along the course of the ureter. We back-loaded the guidewire through our cystoscope, placed the Pollack catheter over it up into the area of the renal pelvis, injected about 12 mL of contrast that showed perhaps a slight UPJ finding/extrarenal pelvis. No evidence of obstruction. No evidence of extravasation of contrast coming down the ureter. The guidewire was fed back up this and we passed a 6 x 24 Polaris double-J stent over this guidewire and up into the renal pelvis, so its proximal end coiled in the renal pelvis and its distal end coiled in the bladder when the wire was removed. The bladder was drained. The instruments were removed. The string was left attached to the distal end of stent. The patient was awakened, extubated, and taken by stretcher to recovery room. Job ID: [id number]
[2019-03-18] MEDS ORDERED: HYDROcodone/Acetaminophen 5/325 mg Tablet ONE (11:20)
[2019-03-18] MEDS ORDERED: Lidocaine 1% PF 5 ML VIAL ONE (14:22)
[2019-03-18] MEDS ORDERED: EPHEDRINE 25 MG/5 ML SYRINGE ONE (14:22)
[2019-03-18] MEDS ORDERED: Dexamethasone 20 MG/5 ML VIAL ONE (14:22)
[2019-03-18] MEDS ORDERED: Glycopyrrolate 0.2 MG/ML 5 ML SYRINGE ONE (14:22)
[2019-03-18] MEDS ORDERED: Ondansetron PF 4 MG/2 ML Vial ONE (14:22)
[2019-03-18] MEDS ORDERED: PROPOFOL 200 MG/20 ML VIAL ONE (14:22)
[2019-03-18] MEDS ORDERED: Rocuronium Bromide 10 MG/ML (10ML VIAL) ONE (14:22)
== END 2019-03-18 12:45 | disposition home or self-care (01) ==
LOC: SDC 06:52
PROVIDERS: ATTEND Urology
PROC: 0TF78ZZ Fragmentation in Left Ureter, Via Natural or Artificial Opening Endoscopic (ICD-10-PCS; principal; 2019-03-18)
PROC: 0TF68ZZ Fragmentation in Right Ureter, Via Natural or Artificial Opening Endoscopic (ICD-10-PCS; 2019-03-18)
PROC: 0T788DZ Dilation of Bilateral Ureters with Intraluminal Device, Via Natural or Artificial Opening Endoscopic (ICD-10-PCS; 2019-03-18)
DX: N20.2 Calculus of kidney with calculus of ureter (principal); I10 Essential (primary) hypertension; G47.30 Sleep apnea, unspecified; Z88.0 Allergy status to penicillin; Z88.8 Allergy status to other drugs, medicaments and biological substances
CPT/HCPCS: 36415; 74420; 82365; 85025; 88300; C1758; J1100; J1956; J2001; J2370; J2405; J2704; J3010; J3370; S0028

== ENCOUNTER 2019-03-20 11:37 | Outpatient (CLI) | payer MEDICARE ==
--- NOTE | 2019-03-20 12:01 | RAD ---
2 views lumbar spine: 03/20/2019 COMPARISON: None HISTORY: Compression fracture FINDINGS: Stent graft material overlies the thoracic aorta. There is an incompletely imaged ureteral stent on the right. There is a burst fracture of the L1 vertebral body with mild posterior osseous retropulsion and approximately 25% loss of vertebral body height anteriorly. There is mild focal levo scoliosis at the thoracolumbar junction. There are vascular calcifications within the abdominal aorta and pelvis. IMPRESSION: Burst fracture of the L1 vertebral body as detailed above.
== END 2019-03-20 11:38 | disposition home or self-care (01) ==
LOC: BICRAD 11:37
PROVIDERS: ATTEND Neurological Surgery
DX: S32.011D Stable burst fracture of first lumbar vertebra, subsequent encounter for fracture with routine healing (principal)
CPT/HCPCS: 72100

== ENCOUNTER 2019-04-23 15:44 | Outpatient (CLI) | payer MEDICARE ==
--- NOTE | 2019-04-23 16:09 | RAD ---
Lumbar spine 2 views HISTORY: Low back pain. COMPARISON: 03/20/2019. FINDINGS: 5 lumbar type vertebrae. Leftward convex rotatory scoliotic curvature of the thoracolumbar junction on the frontal view. Burst fracture of the L1 vertebra is stable on the frontal and lateral views. Other vertebral body heights are maintained. Osteophytosis throughout the lower facets. Aortic stent partially visualized. Right ureteral stent no longer visible. Left renal calculus not seen on today's exam. IMPRESSION : Stable radiographic appearance of the L1 burst fracture. Degenerative changes and other osseous findings are stable. Interval removal of the right ureteral stent.
== END 2019-04-23 15:45 | disposition home or self-care (01) ==
LOC: BICRAD 15:44
PROVIDERS: ATTEND Neurological Surgery
DX: S32.011A Stable burst fracture of first lumbar vertebra, initial encounter for closed fracture (principal); M47.816 Spondylosis without myelopathy or radiculopathy, lumbar region
CPT/HCPCS: 72100

== ENCOUNTER 2019-11-13 08:20 | Outpatient (CLI) | payer MEDICARE ==
[2019-11-13] MEDS ORDERED: Iopamidol-370 76% 500 ML 1 ML ONE (08:40)
--- NOTE | 2019-11-13 10:03 | CT ---
CT ANGIOGRAM THORAX AND ABDOMEN WITH AND WITHOUT IV CONTRAST AND 3-D RECONSTRUCTIONS CLINICAL INDICATION: History of repair of a thoracic aortic aneurysm. Follow-up evaluation after treatment. COMPARISON: 02/28/2019 and 03/01/2019 FINDINGS: Again noted are postoperative changes related to endovascular repair of the descending thoracic aorta . Most proximal marker of the stent graft is at the level of the left subclavian artery origin, but the left subclavian artery is patent. There is a normal arrangement of the great vessels at the aorti c arch which are patent. The stent graft involves the entire length of the descending thoracic aorta and terminates just above the level of the celiac artery origin at the level of the aortic hiat us. There are no findings to suggest an endoleak. Vascular calcifications and mild atherosclerotic plaque are again seen in the abdominal aorta and inv olving the iliac arteries. There is no evidence of abdominal aortic aneurysm or dissection. There is mild narrowing at the origin of the celiac artery. The superior mesenteric and inferior mesenteric arteries are patent. Minimal atherosclerotic calcifications and plaque are seen involving each single renal artery origin with mild narrowing involving the origin of the right renal artery and mil d narrowing involving the proximal left renal artery. Visualized iliac arteries are patent. No filling defects are seen in the pulmonary arteries to suggest a pulmonary embolus. A subcentimeter too small to characterize hypodense lesion is seen in the left thyroid lobe. No mediastinal or hilar lymphadenopathy is seen. There is minimal symmetric biapical pleural and parenchymal scarring. Mild dependent atelectasis is p resent. No pulmonary nodule, mass, or pleural effusion is seen. As noted on prior study, there are ill-defined focal areas of enhancement in hepatic segments 6 and 7 which are not significantly changed from prior exam and were also seen on a study on 07/16/2018. Right renal cyst is again seen. The left kidney, bilateral adrenal glands, pancreas, and spleen demon strate a normal CT appearance for arterial phase of imaging. Colonic diverticulosis is seen. Previously seen superior endplate compression fracture L1 vertebral b brittany is seen. Degree of height loss is not progressed from prior exam. No other interval change. IMPRESSION: 1. Overall stable areas of ill-defined hepatic enhancement which again are likely related to small he mangiomas, small vascular malformations, or transient hepatic differences. Given stability compared to prior study, metastatic lesions are thought less likely, but an additional one-year follow-up eval uation with three-phase liver CT scan is recommended. 2. Stable endovascular repair of the descending thoracic aorta with stent graft in place. There are n o findings to suggest an endoleak. 3. Bilateral hydronephrosis seen on CT abdomen on 03/01/2019 has resolved. Previously seen right UPJ c alculus is also no longer visualized which may be related to interval passage or interval treatment. 4. Right renal cyst.
== END 2019-11-13 08:21 | disposition home or self-care (01) ==
LOC: BICCT 08:20
PROVIDERS: ATTEND Internal Medicine Cardiovascular Disease
DX: I71.01 Dissection of thoracic aorta (principal); I71.02 Dissection of abdominal aorta; N28.1 Cyst of kidney, acquired; N13.30 Unspecified hydronephrosis; Z98.890 Other specified postprocedural states
CPT/HCPCS: 71275; 74175; 82565; Q9967

== ENCOUNTER 2019-12-25 07:55 | Outpatient (CLI) | payer MEDICARE ==
--- NOTE | 2019-12-25 09:58 | MRI ---
MRI THORACIC SPINE WITHOUT CONTRAST: Date: 12/25/2019 INDICATION: Thoracic disorder. Back pain. FINDINGS: There is mild anterior compression of the T12 vertebra. There is a superior end plate deformity at T1 2 consistent with a Schmorl's node associated with this mild anterior wedging. Loss of anterior heigh t estimated in the 15% range. This vertebra is not completely imaged on this study. There is no evide nce of significant edema on the STIR which would indicate this is a stable compression. Otherwise, the thoracic vertebra maintain normal height and alignment and exhibit normal signal. The disc spaces are preserved. Mild degenerative spurring. The thoracic cord is suboptimally evaluated du e to artifact. No definite cord lesion or abnormal signal identified. Axial T2 images are significant ly degraded due to artifact which inhibits adequate evaluation of the cord. No definite signal within the cord appreciated on the T2 sagittal. There is no evidence of significant disc bulge or disc protrusion at any of the thoracic levels. IMPRESSION: 1. Anterior wedge compression of the T12 vertebra as described above. This does not appear to repres ent an acute injury. 2. Thoracic vertebra otherwise maintain normal height and alignment. No significant disc bulge or pr otrusion. No definite cord abnormality identified, although artifact inhibits cord evaluation as disc ussed above. POS: [facility]
== END 2019-12-25 07:56 | disposition home or self-care (01) ==
LOC: BICMRI 07:55
PROVIDERS: ATTEND Chiropractor
DX: M51.15 Intervertebral disc disorders with radiculopathy, thoracolumbar region (principal); M47.26 Other spondylosis with radiculopathy, lumbar region; M99.02 Segmental and somatic dysfunction of thoracic region; M99.03 Segmental and somatic dysfunction of lumbar region
CPT/HCPCS: 72146

== ENCOUNTER 2020-04-13 10:43 | Outpatient (CLI) | payer MEDICARE ==
[2020-04-13] MEDS ORDERED: Iopamidol-370 76% 500 ML 1 ML ONE (11:10)
== END 2020-04-13 10:44 | disposition home or self-care (01) ==
LOC: CT 10:43
PROVIDERS: ATTEND Internal Medicine
DX: I71.01 Dissection of thoracic aorta (principal); S32.010D Wedge compression fracture of first lumbar vertebra, subsequent encounter for fracture with routine healing; I77.4 Celiac artery compression syndrome; I77.811 Abdominal aortic ectasia; K76.0 Fatty (change of) liver, not elsewhere classified; K76.9 Liver disease, unspecified
CPT/HCPCS: 71275; 74174; 82565

== ENCOUNTER 2021-10-06 07:27 | Outpatient (CLI) | payer MEDICARE ==
[2021-10-06] MEDS ORDERED: Iopamidol-370 76% 500 ML 1 ML ONE (13:55)
== END 2021-10-06 07:28 | disposition home or self-care (01) ==
LOC: BICCT 07:27
PROVIDERS: ATTEND Physician Assistant
DX: I71.01 Dissection of thoracic aorta (principal); Z95.828 Presence of other vascular implants and grafts
CPT/HCPCS: 71275; 82565; Q9967

== ENCOUNTER 2021-10-27 15:07 | Outpatient (CLI) | payer MEDICARE | END 2021-10-27 15:08 | disposition home or self-care (01) | LOC: BICRAD 15:07 | PROVIDERS: ATTEND Neurological Surgery | DX: M47.22 Other spondylosis with radiculopathy, cervical region (principal); M47.26 Other spondylosis with radiculopathy, lumbar region; M43.8X6 Other specified deforming dorsopathies, lumbar region | CPT/HCPCS: 72050; 72120 ==

== ENCOUNTER 2022-01-25 19:26 | Emergency (ER) | payer MEDICARE ==
[~2022-01-25 19:26] MED LIST: Iopamidol-370 76% 500 ML 1 ML ONE
[2022-01-25 20:05] LABS: #Basophils 0.1 thou/uL (0.0-0.2); #Eosinphils 0.4 thou/uL (0.0-0.7); #Lymphocytes 1.9 thou/uL (1.20-3.40); #Monocytes 0.9 thou/uL (0.11-0.59); %Basophils 0.9 % (0.0-1.0); %Lymphocytes 26.6 % (21.0-51.0); %Monocytes 12.7 % (0.0-10.0); %Neutrophils 54.8 % (42.0-75.0); Hemoglobin 13.3 g/dL (12.0-16.0); Mean Corpuscular HGB CONC 32.5 g/dL (32.0-36.0); Mean Corpuscular Hemoglobin 32.3 pg (27.0-31.0); Mean Corpuscular Volume 99.3 fl (78.0-98.0); Mean Platelet Volume 6.3 fL (7.4-10.4); Platelet Count 238 10x3/uL (130-400); RBC Distribution Width 12.8 % (11.5-14.5); Red Blood Cell (RBC) Count 4.12 mill/uL (4.20-5.40); White Blood Cell (WBC) Count 7.3 10x3/uL (4.8-10.8)
[2022-01-25 20:26] LABS: ALT (SGPT) 27 U/L (8-55); AST (SGOT) 18 U/L (5-34); Albumin 3.8 g/dL (3.4-4.8); Alkaline Phosphatase 66 U/L (40-110); Anion Gap 14 mmol/L (10-20); BUN (Urea Nitrogen) 17 mg/dL (9.8-20.1); Bilirubin, Total 0.3 mg/dL (0.2-1.2); Calc. Creatinine Clearance 0 mL/min (70-130); Calcium 9.2 mg/dL (7.8-10.44); Carbon Dioxide 22 mmol/L (23-31); Chloride 111 mmol/L (98-107); Estimated GFR 71; Globulin 2.5 g/dL (2.4-3.5); Glucose 105 mg/dL (83-110); Lipase 71 U/L (8-78); Magnesium 2.2 mg/dL (1.6-2.6); Potassium 4.4 mmol/L (3.5-5.1); Protein, Total 6.3 g/dL (5.8-8.1); Sodium 143 mmol/L (136-145)
[2022-01-25 20:57] LABS: Bilirubin Negative (Negative); Blood, Urine Trace (Negative); Clarity Clear (Clear); Glucose, Urine (Dipstick) Normal (Negative); Ketone, Urine Negative (Negative); Leukocyte 75 Leu/uL (Negative); Nitrite Negative (Negative); Protein, Urine (Dipstick) Negative (Neg-Trace); RBC/HPF 0-3 HPF (0-3); Specific Gravity, Urine 1.007 (1.002-1.036); Squamous Epithelial 0-3 HPF (0-3); Urobilinogen Normal mg/dL (Less than 2); WBC/HPF 0-3 HPF (0-3)
[2022-01-25 20:59] LABS: Bacteria/HPF Rare-Few HPF (None Seen)
== END 2022-01-25 22:41 | disposition home or self-care (01) ==
LOC: ERS 19:26
DX: I47.1 Supraventricular tachycardia (principal); I10 Essential (primary) hypertension; Z79.899 Other long term (current) drug therapy
CPT/HCPCS: 36415; 71045; 71275; 74174; 80053; 81003; 81015; 83690; 83735; 84443; 84484; 85025; 93005; Q9967

== ENCOUNTER 2023-07-11 10:16 | Inpatient (IN) | payer MEDICARE ==
[~2023-07-11 10:16] MED LIST changes: -Iopamidol-370 76% 500 ML 1 ML ONE; +Iopamidol-370 76% 500 ML MDV (1 ML CHARGE) ONE
[2023-07-11] MEDS ORDERED: Ondansetron PF 4 MG/2 ML Vial ONE (11:26)
[2023-07-11] MEDS ORDERED: Morphine 4 MG/ML VIAL ONE ×2 (11:26→14:16)
[2023-07-11 11:53] LABS: #Basophils 0.05 10x3/uL (0.0-0.2); %Basophils 0.4 % (0.0-1.0); %Eosinophils 3.6 % (0.0-10.0); %Lymphocytes 14.4 % (21.0-51.0); %Monocytes 8.8 % (0.0-10.0); %Neutrophils 72.5 % (42.0-75.0); Hemoglobin 12.8 g/dL (12.0-16.0); Mean Corpuscular HGB CONC 32.8 g/dL (32.0-36.0); Mean Corpuscular Hemoglobin 32.2 pg (27.0-31.0); Mean Platelet Volume 8.9 fL (7.4-10.4); Platelet Count 258 10x3/uL (130-400); RBC Distribution Width 12.8 % (11.5-14.5); Red Blood Cell (RBC) Count 3.98 mill/uL (4.20-5.40)
[2023-07-11 12:17] LABS: ALT (SGPT) 9 U/L (8-55); AST (SGOT) 16 U/L (5-34); Albumin 3.7 g/dL (3.4-4.8); Alkaline Phosphatase 52 U/L (40-110); Anion Gap 14 mmol/L (10-20); BUN (Urea Nitrogen) 15 mg/dL (9.8-20.1); Bilirubin, Total 0.5 mg/dL (0.2-1.2); Calc. Creatinine Clearance 0 mL/min (70-130); Calcium 9.6 mg/dL (7.8-10.44); Carbon Dioxide 23 mmol/L (23-31); Chloride 108 mmol/L (98-107); Estimated GFR 72; Globulin 2.9 g/dL (2.4-3.5); Glucose 90 mg/dL (83-110); Lipase 40 U/L (8-78); Potassium 4.6 mmol/L (3.5-5.1); Protein, Total 6.6 g/dL (5.8-8.1); Sodium 140 mmol/L (136-145)
[2023-07-11 12:19] LABS: Troponin I 0.013 ng/mL (< 0.028)
[2023-07-11] MEDS ORDERED: metroNIDAZOLE 500 MG (100 mL) BAG ONE (13:12)
[2023-07-11] MEDS ORDERED: LevoFLOXacin 750 mg/D5W 150 ml Premix Bag ONE (13:13)
[2023-07-11 13:24] LABS: Bacteria/HPF None Seen HPF (None Seen); Bilirubin Negative (Negative); Blood, Urine Trace (Negative); CAUTI Indications for Culture Pelvic or flank pain; Clarity Clear (Clear); Glucose, Urine (Dipstick) Normal (Negative); Ketone, Urine Negative (Negative); Leukocyte Negative Leu/uL (Negative); Nitrite Negative (Negative); Protein, Urine (Dipstick) Negative (Neg-Trace); RBC/HPF 0-3 HPF (0-3); Specific Gravity, Urine 1.008 (1.002-1.036); Squamous Epithelial 0-3 HPF (0-3); Urobilinogen Normal mg/dL (Less than 2); WBC/HPF 0-3 HPF (0-3); pH, Urine 6.5 (5.0-9.0)
[2023-07-11 13:30] LABS: Urine Culture Reflex No No
[2023-07-11 15:18] VITALS: BMI 26.2
[2023-07-11] MEDS ORDERED: Morphine 4 MG/ML VIAL SLOW IVP PRN ×2 (15:21→17:41)
[2023-07-11] MEDS ORDERED: Morphine 2 MG/ML VIAL SLOW IVP PRN (15:21)
[2023-07-11] MEDS: cefTRIAXone\\ROCEPHIN 1 GM in Sodium Chloride 0.9% 100 ML IVPB SCH (16:20)
[2023-07-11] MEDS: Morphine 4 MG/ML VIAL SLOW IVP PRN (17:48)
[2023-07-11] MEDS: metroNIDAZOLE 500 MG in Premix 1 BAG IVPB SCH (20:42)
[2023-07-11] MEDS: Pantoprazole 40 MG VIAL IVP SCH (20:42)
[2023-07-11] MEDS: Melatonin 3 MG TAB PO SCH (23:58)
[2023-07-12] MEDS: Sodium Chloride 0.9% 500 ML IVPB SCH (01:18)
[2023-07-12] MEDS: Levothyroxine Sodium 75 MCG TAB PO SCH (05:40)
[2023-07-12] MEDS: Acetaminophen 325 MG TAB PO PRN (06:14)
[2023-07-12] MEDS: diphenhydrAMINE 25 MG CAP PO SCH (06:14)
[2023-07-12] MEDS: Sodium Chloride 0.9% 1,000 ML IV SCH (06:15)
[2023-07-12 06:16] LABS: #Basophils 0.03 10x3/uL (0.0-0.2); %Basophils 0.4 % (0.0-1.0); %Lymphocytes 15.4 % (21.0-51.0); %Monocytes 11.7 % (0.0-10.0); %Neutrophils 68.4 % (42.0-75.0); Hematocrit 31.8 % (36.0-47.0); Hemoglobin 10.3 g/dL (12.0-16.0); Mean Corpuscular HGB CONC 32.4 g/dL (32.0-36.0); Mean Corpuscular Hemoglobin 31.8 pg (27.0-31.0); Mean Corpuscular Volume 98.1 fL (78.0-98.0); Mean Platelet Volume 9.4 fL (7.4-10.4); Platelet Count 204 10x3/uL (130-400); RBC Distribution Width 12.9 % (11.5-14.5); Red Blood Cell (RBC) Count 3.24 mill/uL (4.20-5.40)
[2023-07-12 06:23] LABS: Anion Gap 12 mmol/L (10-20); BUN (Urea Nitrogen) 10 mg/dL (9.8-20.1); Calc. Creatinine Clearance 62 mL/min (70-130); Calcium 8.4 mg/dL (7.8-10.44); Carbon Dioxide 19 mmol/L (23-31); Chloride 112 mmol/L (98-107); Estimated GFR 71; Glucose 94 mg/dL (83-110); Potassium 4.4 mmol/L (3.5-5.1); Sodium 139 mmol/L (136-145)
[2023-07-12] MEDS: Lactated Ringer's 1,000 ML IV SCH (11:25)
[2023-07-12] MEDS: oxyCODONE 5 MG TAB PO SCH (11:25)
[2023-07-12] MEDS ORDERED: CARISOPRODOL 350 MG PO PRN (15:14)
[2023-07-12] MEDS ORDERED: ALPRAZolam 0.25 MG TAB PO PRN (15:14)
[2023-07-12] MEDS: Gabapentin 300 MG CAP PO SCH (20:31)
[2023-07-12] MEDS: Metoprolol Tartrate 50 MG TAB PO SCH (20:32)
[2023-07-12] MEDS ORDERED: Melatonin 3 MG TAB PO PRN (20:39)
[2023-07-12] MEDS: Melatonin 3 MG TAB PO PRN (21:05)
[2023-07-13] MEDS: diphenhydrAMINE 25 MG CAP PO SCH (00:03)
[2023-07-13 07:19] LABS: #Basophils 0.04 10x3/uL (0.0-0.2); %Basophils 0.7 % (0.0-1.0); %Eosinophils 10.9 % (0.0-10.0); %Lymphocytes 21.7 % (21.0-51.0); %Monocytes 12.1 % (0.0-10.0); %Neutrophils 54.4 % (42.0-75.0); Hematocrit 36.5 % (36.0-47.0); Hemoglobin 11.8 g/dL (12.0-16.0); Mean Corpuscular HGB CONC 32.3 g/dL (32.0-36.0); Mean Corpuscular Hemoglobin 30.9 pg (27.0-31.0); Mean Corpuscular Volume 95.5 fL (78.0-98.0); Mean Platelet Volume 9.2 fL (7.4-10.4); Platelet Count 215 10x3/uL (130-400); RBC Distribution Width 12.9 % (11.5-14.5); Red Blood Cell (RBC) Count 3.82 mill/uL (4.20-5.40)
[2023-07-13 07:58] LABS: Anion Gap 13 mmol/L (10-20); BUN (Urea Nitrogen) 7 mg/dL (9.8-20.1); Calc. Creatinine Clearance 64 mL/min (70-130); Calcium 8.8 mg/dL (7.8-10.44); Carbon Dioxide 21 mmol/L (23-31); Chloride 115 mmol/L (98-107); Estimated GFR 74; Glucose 98 mg/dL (83-110); Potassium 4.4 mmol/L (3.5-5.1); Sodium 145 mmol/L (136-145)
[2023-07-13] MEDS ORDERED: Metoprolol Tartrate 50 MG TAB PO SCH (09:00)
[2023-07-13] MEDS ORDERED: Non-Formulary Item 1 EACH (Irbesartan [Irbesartan] 300 MG Tablet) PO SCH (09:00)
[2023-07-13] MEDS ORDERED: Non-Formulary Item 1 EACH (Spironolactone [Spironolactone] 50 MG Tablet) PO SCH (09:00)
[2023-07-13] MEDS: Multivit, Therapeutic 1 TAB PO SCH (09:20)
[2023-07-13] MEDS: Donepezil HCl 10 MG TAB PO SCH (09:20)
[2023-07-13] MEDS: DULoxetine 60 MG CAP PO SCH (09:22)
[2023-07-13] MEDS: guaiFENesin ER 600 MG TAB PO SCH (10:27)
[2023-07-13 16:50] VITALS: TEMP 98.1
[2023-07-13 17:18] VITALS: BP 147/80
[2023-07-13] MEDS ORDERED: Pantoprazole DR 40 MG TAB PO SCH (21:00)
== END 2023-07-13 17:06 | disposition home or self-care (01) | DRG 392 ==
LOC: ERS 10:16 → T4-B 14:41
PROVIDERS: ADMIT Internal Medicine; ATTEND Hospitalist
DX: K57.32 Diverticulitis of large intestine without perforation or abscess without bleeding (principal); I10 Essential (primary) hypertension; K21.9 Gastro-esophageal reflux disease without esophagitis; E03.9 Hypothyroidism, unspecified; F41.9 Anxiety disorder, unspecified; F32.A Depression, unspecified; I95.9 Hypotension, unspecified; G43.909 Migraine, unspecified, not intractable, without status migrainosus; Z88.0 Allergy status to penicillin; Z88.8 Allergy status to other drugs, medicaments and biological substances; Z79.899 Other long term (current) drug therapy; Z98.890 Other specified postprocedural states
CPT/HCPCS: 36415; 74177; 80048; 80053; 81001; 83605; 83690; 84484; 85025; 93005; C9113; J0696; J1956; J2270; J2405; J3490; J7030; J7050; J7120; Q9967

== ENCOUNTER 2023-09-21 00:27 | Emergency (ER) | payer MEDICARE ==
[2023-09-21 01:04] LABS: #Basophils Less than 0.03 10x3/uL (0.0-0.2); %Basophils 0.2 % (0.0-1.0); %Eosinophils 2.1 % (0.0-10.0); %Monocytes 13.1 % (0.0-10.0); %Neutrophils 74.3 % (42.0-75.0); Hematocrit 42.4 % (36.0-47.0); Hemoglobin 14.1 g/dL (12.0-16.0); Mean Corpuscular HGB CONC 33.3 g/dL (32.0-36.0); Mean Corpuscular Hemoglobin 30.9 pg (27.0-31.0); Mean Platelet Volume 8.9 fL (7.4-10.4); Platelet Count 242 10x3/uL (130-400); RBC Distribution Width 13.5 % (11.5-14.5); Red Blood Cell (RBC) Count 4.56 mill/uL (4.20-5.40)
[2023-09-21 01:39] LABS: ALT (SGPT) 22 U/L (8-55); AST (SGOT) 26 U/L (5-34); Albumin 3.7 g/dL (3.4-4.8); Alkaline Phosphatase 53 U/L (40-110); Anion Gap 14 mmol/L (10-20); BUN (Urea Nitrogen) 18 mg/dL (9.8-20.1); Bilirubin, Total 0.6 mg/dL (0.2-1.2); Calc. Creatinine Clearance 0 mL/min (70-130); Carbon Dioxide 21 mmol/L (23-31); Chloride 109 mmol/L (98-107); Estimated GFR 74; Globulin 2.8 g/dL (2.4-3.5); Glucose 119 mg/dL (83-110); Lipase 64 U/L (8-78); Potassium 4.4 mmol/L (3.5-5.1); Protein, Total 6.5 g/dL (5.8-8.1); Sodium 140 mmol/L (136-145)
[2023-09-21 01:44] LABS: Troponin I Less than 0.010 ng/mL (< 0.028)
[2023-09-21 02:17] LABS: Bacteria/HPF None Seen HPF (None Seen); Squamous Epithelial 0-3 HPF (0-3); WBC/HPF 0-3 HPF (0-3)
[2023-09-21 02:18] LABS: Bilirubin Negative (Negative); Blood, Urine Trace (Negative); CAUTI Indications for Culture Pelvic or flank pain; Clarity Clear (Clear); Glucose, Urine (Dipstick) Normal (Negative); Ketone, Urine Trace mg/dL (Negative); Leukocyte 25 Leu/uL (Negative); Nitrite Negative (Negative); Protein, Urine (Dipstick) 30 mg/dL (Neg-Trace)
[2023-09-21 02:20] LABS: Urine Culture Reflex No No
[2023-09-21 12:49] LABS: Campy jejuni + coli by PCR Negative (Negative); STEC Shiga Toxin 1+2 Negative (Negative); Salmonella spp. by PCR Negative (Negative); Shigella spp + EIEC by PCR Negative (Negative)
[2023-09-21] MEDS ORDERED: Iopamidol-370 76% 500 ML MDV (1 ML CHARGE) ONE (14:37)
== END 2023-09-21 04:00 | disposition home or self-care (01) ==
LOC: ERS 00:27
DX: K52.9 Noninfective gastroenteritis and colitis, unspecified (principal); I10 Essential (primary) hypertension; K21.9 Gastro-esophageal reflux disease without esophagitis; R10.13 Epigastric pain
CPT/HCPCS: 71045; 74177; 80053; 81001; 83690; 84484; 85025; 87505; 93005; 99285; Q9967

== ENCOUNTER 2024-01-13 08:19 | Inpatient (IN) | payer MEDICARE ==
[2024-01-13 08:56] LABS: #Basophils 0.05 10x3/uL (0.0-0.2); %Basophils 0.7 % (0.0-1.0); %Eosinophils 3.4 % (0.0-10.0); %Lymphocytes 25.7 % (21.0-51.0); %Monocytes 10.8 % (0.0-10.0); %Neutrophils 59.1 % (42.0-75.0); Hematocrit 40.1 % (36.0-47.0); Hemoglobin 13.1 g/dL (12.0-16.0); Mean Corpuscular HGB CONC 32.7 g/dL (32.0-36.0); Mean Corpuscular Hemoglobin 31.2 pg (27.0-31.0); Mean Corpuscular Volume 95.5 fL (78.0-98.0); Mean Platelet Volume 8.6 fL (7.4-10.4); Platelet Count 219 10x3/uL (130-400); RBC Distribution Width 13.2 % (11.5-14.5)
[2024-01-13 09:16] LABS: ALT (SGPT) 23 U/L (8-55); AST (SGOT) 19 U/L (5-34); Albumin 3.2 g/dL (3.4-4.8); Alkaline Phosphatase 46 U/L (40-110); Anion Gap 12 mmol/L (10-20); BUN (Urea Nitrogen) 16 mg/dL (9.8-20.1); Bilirubin, Total 0.3 mg/dL (0.2-1.2); Calc. Creatinine Clearance 0 mL/min (70-130); Calcium 8.1 mg/dL (7.8-10.44); Carbon Dioxide 21 mmol/L (23-31); Chloride 113 mmol/L (98-107); Estimated GFR 72; Globulin 2.4 g/dL (2.4-3.5); Glucose 93 mg/dL (83-110); Potassium 4.4 mmol/L (3.5-5.1); Protein, Total 5.6 g/dL (5.8-8.1); Sodium 142 mmol/L (136-145)
[2024-01-13 09:23] LABS: Critical Call Chem Troponin I NUR.LS7; Troponin I 0.318 ng/mL (< 0.028)
[2024-01-13] MEDS ORDERED: Aspirin Chewable 81 MG TAB ONE (09:34)
[2024-01-13] MEDS ORDERED: Acetaminophen 500 MG TAB ONE (09:34)
[2024-01-13] MEDS ORDERED: Enoxaparin 30 MG (0.3 mL) SYRINGE ONE (10:42)
[2024-01-13] MEDS ORDERED: Iopamidol-370 76% 500 ML MDV (1 ML CHARGE) ONE (10:52)
[2024-01-13] MEDS ORDERED: Calcium Carbonate 500 MG ChewTAB PO PRN (10:54)
[2024-01-13] MEDS ORDERED: Senokot S 8.6-50 MG TAB PO PRN (10:54)
[2024-01-13 11:01] LABS: INR-International Normal Ratio 1.1; PTT 27.9 sec (22.9-36.1); Prothrombin Time 14.4 sec (12.0-14.7)
[2024-01-13] MEDS ORDERED: Nitroglycerin 0.4 MG TAB (25 Tab Bottle) SL PRN (11:37)
[2024-01-13] MEDS ORDERED: ALPRAZolam 0.25 MG TAB PO PRN (11:38)
[2024-01-13 11:39] LABS: Bacteria/HPF None Seen HPF (None Seen); Bilirubin Negative (Negative); Blood, Urine Negative (Negative); CAUTI Indications for Culture Dysuria,urgency,freq; Clarity Clear (Clear); Glucose, Urine (Dipstick) Normal (Negative); Ketone, Urine Negative (Negative); Leukocyte Negative Leu/uL (Negative); Nitrite Negative (Negative); Protein, Urine (Dipstick) Negative (Neg-Trace); RBC/HPF 0-3 HPF (0-3); Specific Gravity, Urine 1.033 (1.002-1.036); Squamous Epithelial 0-3 HPF (0-3); Urobilinogen Normal mg/dL (Less than 2); WBC/HPF None Seen HPF (0-3)
[2024-01-13 11:41] LABS: Urine Culture Reflex No No
[2024-01-13 12:31] LABS: Troponin I 0.545 ng/mL (< 0.028)
[2024-01-13] MEDS ORDERED: Communication Order-Pharmacy FS ONE (12:47)
[2024-01-13 13:53] LABS: Critical Call Chem Troponin I J.LOWER500
[2024-01-13 13:54] LABS: Troponin I 1.565 ng/mL (< 0.028)
[2024-01-13] MEDS: Benzocaine/Menthol 1 LOZ LOZ PO PRN (16:03)
[2024-01-13] MEDS: Guaifenesin DM 100-10/5 ML UDCUP PO PRN (16:03)
[2024-01-13] MEDS: Donepezil HCl 10 MG TAB PO SCH (20:49)
[2024-01-13] MEDS: Metamucil PACK PO SCH (20:49)
[2024-01-13] MEDS: Enoxaparin 80 MG (0.8 mL) SYRINGE SC SCH (20:50)
[2024-01-13] MEDS: traMADol HCl 50 MG TAB PO PRN (23:20)
[2024-01-14 04:48] LABS: #Basophils 0.03 10x3/uL (0.0-0.2); %Basophils 0.5 % (0.0-1.0); %Eosinophils 6.6 % (0.0-10.0); %Lymphocytes 40.5 % (21.0-51.0); %Monocytes 8.3 % (0.0-10.0); %Neutrophils 43.8 % (42.0-75.0); Hematocrit 42.6 % (36.0-47.0); Mean Corpuscular HGB CONC 32.9 g/dL (32.0-36.0); Mean Corpuscular Volume 94.2 fL (78.0-98.0); Mean Platelet Volume 8.7 fL (7.4-10.4); Platelet Count 201 10x3/uL (130-400); RBC Distribution Width 13.1 % (11.5-14.5); Red Blood Cell (RBC) Count 4.52 mill/uL (4.20-5.40)
[2024-01-14 05:01] LABS: Anion Gap 11 mmol/L (10-20); BUN (Urea Nitrogen) 13 mg/dL (9.8-20.1); Calc. Creatinine Clearance 67 mL/min (70-130); Calcium 8.9 mg/dL (7.8-10.44); Carbon Dioxide 21 mmol/L (23-31); Chloride 115 mmol/L (98-107); Estimated GFR 85; Glucose 89 mg/dL (83-110); Sodium 143 mmol/L (136-145)
[2024-01-14] MEDS: Levothyroxine Sodium 75 MCG TAB PO SCH (06:11)
[2024-01-14] MEDS: Aspirin 81 mg Enteric Coated Tablet PO SCH (09:41)
[2024-01-14] MEDS: DULoxetine 60 MG CAP PO SCH (09:41)
[2024-01-14] MEDS: Ezetimibe 10 MG TAB PO SCH (09:41)
[2024-01-14] MEDS: Fish Oil 1,000 MG CAP PO SCH (09:42)
[2024-01-14] MEDS ORDERED: CATH FS PRN (12:30)
[2024-01-14] MEDS: Losartan 25 MG TAB PO SCH (13:01)
[2024-01-14] MEDS: NIFEdipine XL 30 MG ER.TAB PO SCH (13:01)
[2024-01-14] MEDS: Acetaminophen 325 MG TAB PO PRN (15:44)
[2024-01-15 05:00] LABS: #Basophils 0.04 10x3/uL (0.0-0.2); %Basophils 0.6 % (0.0-1.0); %Eosinophils 6.3 % (0.0-10.0); %Lymphocytes 30.5 % (21.0-51.0); %Monocytes 9.7 % (0.0-10.0); %Neutrophils 52.6 % (42.0-75.0); Hematocrit 43.3 % (36.0-47.0); Hemoglobin 14.4 g/dL (12.0-16.0); Mean Corpuscular HGB CONC 33.3 g/dL (32.0-36.0); Mean Corpuscular Hemoglobin 30.6 pg (27.0-31.0); Mean Corpuscular Volume 91.9 fL (78.0-98.0); Platelet Count 221 10x3/uL (130-400); RBC Distribution Width 12.9 % (11.5-14.5); Red Blood Cell (RBC) Count 4.71 mill/uL (4.20-5.40)
[2024-01-15 05:12] LABS: Anion Gap 13 mmol/L (10-20); BUN (Urea Nitrogen) 13 mg/dL (9.8-20.1); Calc. Creatinine Clearance 66 mL/min (70-130); Calcium 8.9 mg/dL (7.8-10.44); Carbon Dioxide 21 mmol/L (23-31); Cardiac Risk 4.8 (Less than 4.5); Chloride 110 mmol/L (98-107); Cholesterol 179 mg/dl (< 200 Desired); Estimated GFR 83; Glucose 112 mg/dL (83-110); HDL Cholesterol 37 mg/dL (>60 Neg Risk); LDL Cholesterol, Calculated 118 mg/dL; Sodium 140 mmol/L (136-145); Triglycerides 118 mg/dL (Less than 150)
[2024-01-15] MEDS: Sodium Chloride 0.9% 1,000 ML IV SCH ×2 (06:03→10:24)
[2024-01-15] MEDS ORDERED: Nitroglycerin 50 MG/250 ML BOT 250 ML ONE (07:37)
[2024-01-15] MEDS ORDERED: Verapamil 5 MG/2 ML VIAL ONE (07:37)
[2024-01-15] MEDS ORDERED: Adenosine 6 mg (2 mL) VIAL ONE (07:37)
[2024-01-15] MEDS ORDERED: Heparin 10,000 UNITS/ 10 ML VIAL ONE (07:37)
[2024-01-15] MEDS ORDERED: fentaNYL 50 mcg/mL 1 mL Vial ONE (08:11)
[2024-01-15] MEDS ORDERED: Midazolam HCl 2 mg/2 ml Vial ONE (08:11)
[2024-01-15] MEDS ORDERED: hydrALAZINE 20 MG/ML VIAL ONE (08:35)
[2024-01-15] MEDS ORDERED: Nitroglycerin 0.4 MG TAB (25 Tab Bottle) SL PRN (08:55)
[2024-01-15] MEDS ORDERED: Sodium Chloride 0.9% 200 ML IV PRN (08:55)
[2024-01-15] MEDS ORDERED: Acetaminophen/Codeine 30-300mg Tablet PO PRN (08:55)
[2024-01-15] MEDS: Losartan 25 MG TAB PO SCH (09:59)
[2024-01-15] MEDS: NIFEdipine XL 30 MG ER.TAB PO SCH (10:00)
[2024-01-15] MEDS: Multivit, Therapeutic 1 TAB PO SCH (10:00)
[2024-01-15] MEDS: Acetaminophen/Codeine 30-300mg Tablet PO PRN (10:01)
[2024-01-15] MEDS ORDERED: Iopamidol 370 76% 100 ML VIAL ONE (11:41)
[2024-01-15 12:37] VITALS: BP 145/70; TEMP 97.1
== END 2024-01-15 15:13 | disposition home or self-care (01) | DRG 282 ==
LOC: ERS 08:19 → OBS 10:53 → OBSVTOIN 01-14 14:50
PROVIDERS: ADMIT Family Medicine; ATTEND Internal Medicine
PROC: 4A023N7 Measurement of Cardiac Sampling and Pressure, Left Heart, Percutaneous Approach (ICD-10-PCS; principal; 2024-01-15)
PROC: B2111ZZ Fluoroscopy of Multiple Coronary Arteries using Low Osmolar Contrast (ICD-10-PCS; 2024-01-15)
PROC: B2151ZZ Fluoroscopy of Left Heart using Low Osmolar Contrast (ICD-10-PCS; 2024-01-15)
DX: I21.4 Non-ST elevation (NSTEMI) myocardial infarction (principal); R00.1 Bradycardia, unspecified; F41.8 Other specified anxiety disorders; I10 Essential (primary) hypertension; E78.5 Hyperlipidemia, unspecified; I25.10 Atherosclerotic heart disease of native coronary artery without angina pectoris; G43.909 Migraine, unspecified, not intractable, without status migrainosus; Z86.79 Personal history of other diseases of the circulatory system; Z88.0 Allergy status to penicillin; Z88.8 Allergy status to other drugs, medicaments and biological substances; Z79.899 Other long term (current) drug therapy; Z79.890 Hormone replacement therapy; Z90.712 Acquired absence of cervix with remaining uterus
CPT/HCPCS: 36415; 71045; 71275; 74174; 80048; 80053; 80061; 81001; 83605; 83880; 84484; 85025; 85379; 85610; 85730; 87428; 93005; 93010; 93306; 93458; 94760; 96372; 99152; C1769; C1894; G0378; J0153; J0360; J1644; J1650; J2250; J3010; Q9967

== ENCOUNTER 2024-10-11 01:09 | Emergency (ER) | payer MEDICARE ==
[2024-10-11] MEDS ORDERED: HYDROcodone/Acetaminophen 5/325 mg Tablet ONE (01:42)
== END 2024-10-11 02:33 | disposition home or self-care (01) ==
LOC: ERS 01:09
DX: S93.402A Sprain of unspecified ligament of left ankle, initial encounter (principal); I10 Essential (primary) hypertension; K21.9 Gastro-esophageal reflux disease without esophagitis; X50.1XXA Overexertion from prolonged static or awkward postures, initial encounter; Y92.513 Shop (commercial) as the place of occurrence of the external cause; Z55.6 Problems related to health literacy; Z79.899 Other long term (current) drug therapy; Z79.82 Long term (current) use of aspirin
CPT/HCPCS: 29515